=== PATIENT | female | born 1980 | race Hispanic/Latino ===

== ENCOUNTER 2017-09-18 18:06 | Emergency (ER) | payer MEDICAID, OTHER ==
[2017-09-18 18:08] VITALS: RESP 18
[2017-09-18] MEDS ORDERED: Oxycodone/Acetaminophen 5/325 mg Tab PO STA (18:36)
[2017-09-18] MEDS ORDERED: Oxycodone/Acetaminophen 5/325 mg Tab ONE (18:45)
--- NOTE | 2017-09-18 19:12 | C.PDOC ---
History Of Present Illness 37 yo female BIBA for evaluation of Right knee, left ankle pain developed [employer] after " fell off dresser, while changing curtain". Pt reports, landed onto B;/L legs. Pt reports, severe, diffuse pain to Right knee, noted some swelling to Left ankle. Pain is localized over joints and worse with ambulation. Otherwise, pt denies head injury, LOC, syncope, headache, dizziness, neck pain, CP, abd. pain, N/.V, denies obvious deformity, weakness, sensory or vascular deficits to B/L UEs and LEs. At the time of evaluation, pt appears in pain. Time Seen by Provider: 09/18/17 18:09 Chief Complaint (Nursing): Lower Extremity Problem/Injury History Per: Patient Onset/Duration Of Symptoms: Sudden Onset Past Medical History Reviewed: Historical Data, Nursing Documentation, Vital Signs Vital Signs: Last Vital Signs Temp 97.4 F L 09/18/17 18:07 Pulse 84 09/18/17 18:07 Resp 18 09/18/17 18:07 BP 131/85 09/18/17 18:07 Pulse Ox 100 09/18/17 19:13 - Medical History PMH: Asthma Other PMH: Obese Surgical History: Appendectomy, Tonsillectomy, (x 2) - [facility] Procedures TETANUS TOXOID ADMINIST (12/16/12) Family History: States: Unknown Family Hx - Social History Hx Tobacco Use: No Hx Alcohol Use: No Hx Substance Use: No - Immunization History Hx Tetanus Toxoid Vaccination: No Hx Influenza Vaccination: No Hx Pneumococcal Vaccination: No Review Of Systems Except As Marked, All Systems Reviewed And Found Negative. Constitutional: Negative for: Fever, Chills Eyes: Negative for: Vision Change ENT: Negative for: Throat Pain, Throat Swelling Cardiovascular: Negative for: Chest Pain Respiratory: Negative for: Shortness of Breath Gastrointestinal: Negative for: Nausea, Vomiting Genitourinary: Negative for: Dysuria, Incontinence Musculoskeletal: Positive for: Other (Right knee, left ankle). Negative for: Neck Pain, Back Pain Skin: Negative for: Bruising Neurological: Negative for: Weakness, Numbness, Altered Mental Status, Headache , Dizziness Physical Exam - Physical Exam Appears: Well, Non-toxic, No Acute Distress Skin: Normal Color, Warm, Dry, No Rash, No Ecchymosis Head: Atraumatic, Normacephalic Eye(s): bilateral: PERRL Nose: Normal, No Deformity, No Tenderness Oral Mucosa: Moist Neck: No Midline Cervical Tenderness, No Paracervical Tenderness, No Step Off Deformity, Supple Chest: Symmetrical, No Deformity, No Tenderness Gastrointestinal/Abdominal: Soft, No Tenderness, No Distention, No Guarding Back: No Vertebral Tenderness Extremity: Normal ROM (discomfort to Right knee flexion due to pain.), Tenderness (diffuse tenderness anterior aspect Right knee and mild tenderness with nos edema over lateral malleolus Left ankle. No deformity, no noeurovascular deficits.), No Calf Tenderness, No Deformity Neurological/Psych: Oriented x3, Normal Speech, Normal Motor, Normal Sensation, Normal Reflexes ED Course And Treatment O2 Sat by Pulse Oximetry: 100 Pulse Ox Interpretation: Normal - Other Rad Right knee X-Ray: Interpreted by Me, Viewed By Me Interpretation: (-) acute fx or dislocation Pelvis, B/L hips X-Ray: Interpreted by Me, Viewed By Me Interpretation: (-)acute fx or dislocation Left ankle X-Ray: Interpreted by Me, Viewed By Me Interpretation: (-) acute fx or dislocation Progress Note: On re-evaluation, pt is afebrile, hemodynamicaly stable. Head: AT/NC. Neck: Supple, (-) midline tenderness. ENT: no acute findings. Lungs: CTA B/L, BS equal B/L. RLE: exam c/w diffuse Right knee tenderness . no defomrity, no neurovascular deficits Left LE: exam c/w mild tenderness over lateral malleolus, no deformity, no neurovascular defiicts. Neurologicaly intact. Imagings review, no acute fx or dislocation noted. Knee immobilizer applied to Right knee, left ankle: artemio wrap and air cast applied. Pt has clinical findings c/w Right knee contusion, left ankle sprain. Pt advised and ref. to F/u with Ortho in 1-2 days for re-eval. return if any worsening or new changes. Disposition Counseled Patient/Family Regarding: Studies Performed, Diagnosis, Need For Followup, Rx Given - Disposition Referrals: Yahir Gordon MD [Staff Provider] - Sharan Rodas III, MD [Staff Provider] - Disposition: HOME/ ROUTINE Disposition Time: 19:42 Condition: STABLE Additional Instructions: Knee immobilizer for 1 week Artemio wrap to Left ankle for 1 week RICE-rest, ice, compression, elevation Follow up with Orthopedist in 2 days for re-evaluation. Return to ED if any worsening or new changes. Prescriptions: traMADol [Ultram] 50 mg PO TID #7 tab Instructions: Knee Sprain (DC), Ankle Sprain, Knee Immobilizer (DC) Forms: [employer] ([place] [employer]) - Clinical Impression Clinical Impression: Knee contusion, Ankle sprain
[2017-09-18 20:12] VITALS: BP 118/87; PULSE 85; TEMP 97.9; O2SAT 95
--- NOTE | 2017-09-19 14:12 | RAD ---
PROCEDURE: Left ankle dated 10/06/2017. HISTORY: Injury COMPARISON: Comparison made with prior study dated 05/08/2014 FINDINGS: BONES: No evidence of acute displaced fracture nor dislocation. The osseous structures appear intact. Talar dome intact. Note made of plantar and posterior calcaneal enthesophytes JOINTS: Ankle mortise maintained. No significant osteoarthritis. SOFT TISSUES: There appears to be moderate bilateral soft tissue swelling. . OTHER FINDINGS: None. IMPRESSION: No evidence of acute displaced fracture nor dislocation. Moderate bilateral soft tissue swelling. If symptoms persist or worsen, occult fracture for internal derangement suspected clinically consider followup MRI.
--- NOTE | 2017-09-19 16:11 | RAD ---
PROCEDURE: Right Knee Radiographs. . HISTORY: injury COMPARISON: None. FINDINGS: BONES: No evidence of acute displaced fracture nor dislocation. The osseous structures appear intact. JOINTS: Joint spaces preserved. No significant osteoarthritis. . JOINT EFFUSION: Questionable trace joint effusion. OTHER FINDINGS: None. IMPRESSION: No evidence of acute displaced fracture nor dislocation.
--- NOTE | 2017-09-19 16:17 | RAD ---
PROCEDURE: Pelvis right hip dated 09/18/2017 HISTORY: Injury COMPARISON: No prior study available for comparison however correlation made with concurrent radiographs of the right femur TECHNIQUE: AP view of the pelvis and both hips and frogleg lateral view right hip performed. . FINDINGS: Current study reveals no evidence of acute displaced fracture nor dislocation. The osseous structures intact. Both femoral heads appropriately located within the respective acetabula. Note is made of a small elliptical shaped calcific density overlying the right inferior true pelvis which is of uncertain etiology. . IMPRESSION: No acute fractures. Small nonspecific elliptical shaped calcification over the right inferior true pelvis. Rule out vascular etiologies or possibly on calcification of the uterus or adnexa
--- NOTE | 2017-09-19 16:18 | RAD ---
PROCEDURE: Left femur dated 09/18/2017. HISTORY: injury COMPARISON: Correlation made with concurrent radiographs of the pelvis. TECHNIQUE: AP and lateral views of the left femur performed FINDINGS: No evidence of acute displaced fracture nor dislocation. The osseous structures appear intact. Soft tissues appear unremarkable. IMPRESSION: No evidence of acute displaced fracture nor dislocation. If symptoms persist or occult fracture suspected clinically consider followup CT scan.
== END 2017-09-18 20:37 | disposition home or self-care (01) ==
LOC: C.ER 18:06
DX: S80.01XA Contusion of right knee, initial encounter (principal); S93.402A Sprain of unspecified ligament of left ankle, initial encounter; W17.89XA Other fall from one level to another, initial encounter